=== PATIENT | male | born 1945 | race African-American/Black ===

== ENCOUNTER 2019-03-27 08:38 | Inpatient (IN) ==
[2019-03-27] MEDS ORDERED: HYDROmorphone 2 MG/1 ML VIAL IV STA (09:21)
[2019-03-27] MEDS ORDERED: SODIUM CHLORIDE 0.9% 1,000 ML IV STA (09:21)
[2019-03-27] MEDS ORDERED: ONDANSETRON 4 MG/2 ML VIAL IV STA (09:21)
[2019-03-27 10:01] LABS: Basophils % 0.5 % (0.0-0.8); Eosinophils # 0.1 10*3/uL (0.0-0.87); Eosinophils % 1.3 % (0.00-10.9); Hematocrit 53.9 VOL% (42.0-52.0); Immature Granulocytes % 0.5 %; Immature Granulocytes Absolute 0.02 #; Lymphocytes # 0.5 10*3/uL (1.4-4.0); Lymphocytes % 12.2 % (21.2-54.2); Mean Corpuscular HGB Conc 31.5 GM/DL (32-36); Mean Platelet Volume 10.9 FL (9.6-12.0); Monocytes % 4.3 % (1.7-12.7); Neutrophils % 81.2 % (38.7-73.9); Platelet Count 170 T/CUMM (130-400); Red Blood Count 5.92 MC/CUMM (3.8-5.5); Red Cell Distribution Width 13.3 % (9.3-17.3)
[2019-03-27 10:16] LABS: PT Patient Result 10.4 SECS (9.6-12.2); Partial Thromboplastin Time 26.2 SECS (20.8-36.0)
[2019-03-27 10:22] LABS: Alanine Aminotransferase 15 U/L (16-61); Albumin 3.2 G/DL (3.4-5.0); Alkaline Phosphatase 91 U/L (45-117); Aspartate Amino Transferase 20 U/L (0-37); Blood Urea Nitrogen 13 MG/DL (7-18); Calcium 9.7 MG/DL (8.5-10.1); Estimated Glom Filtration Rate 81 ML/MIN; Glucose 57 MG/DL (74-106); Osmolality,Calculated 274.5 MOS/KG (273-304); Total Protein 7.9 G/DL (6.4-8.3)
[2019-03-27 10:52] LABS: Apearance,Urine CLEAR (Clear); Bacteria,Urine Occasional /HPF (Few); Bilirubin,Urine Negative (Negative); Blood, Urine Negative (Negative); Glucose,Urine (UA) Negative (Negative); Ketones,Urine 80 mg/dL (Negative); Mucus,Urine Occasional /LPF (Occasional); Nitrite,Urine Negative (Negative); Protein,Urine Negative; RBC,Urine 2 /HPF (0-4); Squamous Epithelial Cell,Urine Few /HPF (0-10); Urine Color Yellow (Yellow); Urine Specific Gravity 1.056 (1.001-1.035); Urine Urobilinogen < 2.0 EU/DL (0.2-1.0)
[2019-03-27] MEDS ORDERED: hydrALAZINE 20 MG/1 ML VIAL IV PRN (11:22)
[2019-03-27] MEDS ORDERED: ACETAMINOPHEN 325 MG TABLET PO PRN (11:22)
[2019-03-27] MEDS ORDERED: ENOXAPARIN 40 MG/0.4 ML SYRINGE SUBCUT SCH (11:30)
[2019-03-27] MEDS ORDERED: SODIUM CHLORIDE 0.45% 1,000 ML IV SCH (11:30)
[2019-03-27 12:56] LABS: Cancer Antigen 19-9 687.8 U/ML (0-37); Carcinoembryonic Antigen 2.4 NG/ML (0.0-5.0)
[2019-03-27 13:09] LABS: Hepatitis B Surface Ag Quant < 0.10 Index; Hepatitis B Surface Ag Result Negative (Negative); Hepatitis C Virus Ab Quant 0.08 Index; Hepatitis C Virus Ab Result Negative (Negative)
[2019-03-27] MEDS: DEXTROSE 5% NACL 0.45% 1,000 ML IV SCH (14:25)
[2019-03-27] MEDS: carvediloL 12.5 MG TABLET PO SCH (20:50)
[2019-03-28 04:59] LABS: Basophils % 0.2 % (0.0-0.8); Eosinophils # 0.1 10*3/uL (0.0-0.87); Eosinophils % 1.3 % (0.00-10.9); Hematocrit 35.5 VOL% (42.0-52.0); Hemoglobin 11.2 GM/DL (14.0-18.0); Immature Granulocytes % 0.4 %; Immature Granulocytes Absolute 0.02 #; Lymphocytes # 0.7 10*3/uL (1.4-4.0); Mean Corpuscular HGB Conc 31.5 GM/DL (32-36); Mean Corpuscular Volume 91.5 FL (87-102); Mean Platelet Volume 12.5 FL (9.6-12.0); Monocytes % 7.5 % (1.7-12.7); Neutrophils % 78.6 % (38.7-73.9); Platelet Count 100 T/CUMM (130-400); Red Blood Count 3.88 MC/CUMM (3.8-5.5); Red Cell Distribution Width 13.4 % (9.3-17.3); White Blood Count 5.6 T/CUMM (4-12)
[2019-03-28 05:26] LABS: Albumin 2.2 G/DL (3.4-5.0); Calcium 8.5 MG/DL (8.5-10.1); Osmolality,Calculated 273.7 MOS/KG (273-304); Total Protein 5.5 G/DL (6.4-8.3)
[2019-03-28] MEDS: DEXTROSE 5% NACL 0.45% 1,000 ML IV SCH ×2 (08:05→20:59)
[2019-03-28] MEDS: carvediloL 12.5 MG TABLET PO SCH ×2 (09:08→20:59)
[2019-03-28] MEDS: LOSARTAN 50 MG TABLET PO SCH (09:08)
[2019-03-28] MEDS: amLODIPine 5 MG TABLET PO SCH (09:08)
[2019-03-28] MEDS ORDERED: DIAZEPAM 5 MG TABLET PO ONE (09:30)
[2019-03-28] MEDS: PANTOPRAZOLE 40 MG TABLET PO SCH (10:59)
[2019-03-28] MEDS: POTASSIUM CHLORIDE 20 MEQ TABLET PO SCH (10:59)
[2019-03-28] MEDS: LACTULOSE 20 GM/30 ML UDCUP PO PRN (10:59)
[2019-03-28] MEDS: MORPHINE 4 MG/1 ML VIAL IV PRN (13:33)
[2019-03-28] MEDS: APIXABAN 5 MG TABLET PO SCH (20:59)
[2019-03-29 05:54] LABS: Basophils % 0.3 % (0.0-0.8); Eosinophils # 0.1 10*3/uL (0.0-0.87); Eosinophils % 1.2 % (0.00-10.9); Hematocrit 35.3 VOL% (42.0-52.0); Hemoglobin 11.2 GM/DL (14.0-18.0); Immature Granulocytes % 0.5 %; Immature Granulocytes Absolute 0.03 #; Lymphocytes # 0.7 10*3/uL (1.4-4.0); Lymphocytes % 11.1 % (21.2-54.2); Mean Corpuscular HGB Conc 31.7 GM/DL (32-36); Mean Corpuscular Volume 90.3 FL (87-102); Mean Platelet Volume 11.6 FL (9.6-12.0); Monocytes % 6.6 % (1.7-12.7); Neutrophils % 80.3 % (38.7-73.9); Platelet Count 188 T/CUMM (130-400); Red Blood Count 3.91 MC/CUMM (3.8-5.5); Red Cell Distribution Width 13.2 % (9.3-17.3); White Blood Count 6.1 T/CUMM (4-12)
[2019-03-29 06:25] LABS: Albumin 2.2 G/DL (3.4-5.0); Bilirubin,Total 1.3 MG/DL (0.2-1.0); Osmolality,Calculated 271.8 MOS/KG (273-304); Total Protein 5.7 G/DL (6.4-8.3)
[2019-03-29] MEDS ORDERED: SODIUM PHOSPHATE ENEMA 133 ML BOTTLE RECTAL ONE (09:08)
[2019-03-29] MEDS: POTASSIUM CHLORIDE 20 MEQ TABLET PO SCH (09:47)
[2019-03-29] MEDS: carvediloL 12.5 MG TABLET PO SCH ×2 (09:47→20:31)
[2019-03-29] MEDS: LACTULOSE 20 GM/30 ML UDCUP PO PRN (09:47)
[2019-03-29] MEDS: amLODIPine 5 MG TABLET PO SCH (09:47)
[2019-03-29] MEDS: PANTOPRAZOLE 40 MG TABLET PO SCH (09:47)
[2019-03-29] MEDS: LOSARTAN 50 MG TABLET PO SCH (09:47)
[2019-03-29] MEDS: DEXTROSE 5% NACL 0.45% 1,000 ML IV SCH (09:48)
[2019-03-29] MEDS: APIXABAN 5 MG TABLET PO SCH ×2 (10:18→20:32)
[2019-03-29] MEDS: MORPHINE 4 MG/1 ML VIAL IV PRN (12:08)
[2019-03-29] MEDS: POLYETHYLENE GLYCOL POWDER 17 GM PACK PO SCH (21:10)
[2019-03-30] MEDS: DEXTROSE 5% NACL 0.45% 1,000 ML IV SCH (02:30)
[2019-03-30] MEDS: MORPHINE 4 MG/1 ML VIAL IV PRN ×2 (02:35→10:31)
[2019-03-30 06:09] LABS: Basophils % 0.2 % (0.0-0.8); Eosinophils # 0.1 10*3/uL (0.0-0.87); Eosinophils % 0.9 % (0.00-10.9); Hematocrit 35.3 VOL% (42.0-52.0); Hemoglobin 11.5 GM/DL (14.0-18.0); Immature Granulocytes % 0.5 %; Immature Granulocytes Absolute 0.03 #; Lymphocytes # 0.7 10*3/uL (1.4-4.0); Lymphocytes % 11.4 % (21.2-54.2); Mean Corpuscular HGB Conc 32.6 GM/DL (32-36); Mean Corpuscular Volume 90.1 FL (87-102); Mean Platelet Volume 11.4 FL (9.6-12.0); Monocytes % 7.5 % (1.7-12.7); Neutrophils % 79.5 % (38.7-73.9); Platelet Count 192 T/CUMM (130-400); Red Blood Count 3.92 MC/CUMM (3.8-5.5); Red Cell Distribution Width 13.2 % (9.3-17.3); White Blood Count 6.4 T/CUMM (4-12)
[2019-03-30 06:32] LABS: Alanine Aminotransferase < 9 U/L (16-61); Albumin 2.1 G/DL (3.4-5.0); Alkaline Phosphatase 61 U/L (45-117); Aspartate Amino Transferase 11 U/L (0-37); Blood Urea Nitrogen 7 MG/DL (7-18); Calcium 8.9 MG/DL (8.5-10.1); Estimated Glom Filtration Rate 81 ML/MIN; Glucose 106 MG/DL (74-106); Osmolality,Calculated 270.8 MOS/KG (273-304); Total Protein 5.6 G/DL (6.4-8.3)
[2019-03-30] MEDS: POLYETHYLENE GLYCOL POWDER 17 GM PACK PO SCH (09:11)
[2019-03-30] MEDS: carvediloL 12.5 MG TABLET PO SCH (09:12)
[2019-03-30] MEDS: PANTOPRAZOLE 40 MG TABLET PO SCH (09:12)
[2019-03-30] MEDS: POTASSIUM CHLORIDE 20 MEQ TABLET PO SCH (09:12)
[2019-03-30] MEDS: amLODIPine 5 MG TABLET PO SCH (09:12)
[2019-03-30] MEDS: LOSARTAN 50 MG TABLET PO SCH (09:12)
[2019-03-30 11:11] VITALS: BP 99/62
== END 2019-03-30 14:05 | disposition home or self-care (01) | DRG 436 ==
LOC: N.ED 08:38 → N.EDINP 11:22 → SUATTDRO 11:22 → OBSVTOIN 11:22 → INTOOBSV 11:22 → N.3E 12:25
PROVIDERS: ADMIT Internal Medicine; ATTEND Internal Medicine

== ENCOUNTER 2019-03-31 11:36 | Inpatient (IN) ==
[2019-03-31] MEDS ORDERED: SODIUM CHLORIDE 0.9% 1,000 ML IV STA (11:58)
[2019-03-31] MEDS ORDERED: ONDANSETRON 4 MG/2 ML VIAL IV STA (11:58)
[2019-03-31] MEDS ORDERED: HYDROmorphone 2 MG/1 ML VIAL IV STA (11:58)
[2019-03-31 12:04] LABS: Basophils % 0.3 % (0.0-0.8); Eosinophils # 0.1 10*3/uL (0.0-0.87); Eosinophils % 1.3 % (0.00-10.9); Hematocrit 38.3 VOL% (42.0-52.0); Hemoglobin 12.5 GM/DL (14.0-18.0); Immature Granulocytes % 0.6 %; Immature Granulocytes Absolute 0.04 #; Lymphocytes # 0.8 10*3/uL (1.4-4.0); Lymphocytes % 11.8 % (21.2-54.2); Mean Corpuscular HGB Conc 32.6 GM/DL (32-36); Mean Corpuscular Volume 89.9 FL (87-102); Mean Platelet Volume 11.6 FL (9.6-12.0); Monocytes % 6.7 % (1.7-12.7); Neutrophils % 79.3 % (38.7-73.9); Platelet Count 220 T/CUMM (130-400); Red Blood Count 4.26 MC/CUMM (3.8-5.5); Red Cell Distribution Width 13.3 % (9.3-17.3); White Blood Count 6.7 T/CUMM (4-12)
[2019-03-31 12:24] LABS: Albumin 2.3 G/DL (3.4-5.0); Bilirubin,Total 0.7 MG/DL (0.2-1.0); Calcium 9.6 MG/DL (8.5-10.1); Osmolality,Calculated 272.8 MOS/KG (273-304); Total Protein 5.8 G/DL (6.4-8.3)
[2019-03-31 13:30] LABS: Apearance,Urine CLEAR (Clear); Bacteria,Urine Occasional /HPF (Few); Bilirubin,Urine Negative (Negative); Blood, Urine Negative (Negative); Glucose,Urine (UA) Negative (Negative); Hyaline Casts,Urine 20 /LPF (0-3); Ketones,Urine 5 mg/dL (Negative); Mucus,Urine Moderate /LPF (Occasional); Nitrite,Urine Negative (Negative); Protein,Urine Negative; Sperm,Urine Occasional /HPF (Negative); Urine Color Amber (Yellow); Urine Specific Gravity 1.042 (1.001-1.035); Urine Urobilinogen < 2.0 EU/DL (0.2-1.0)
[2019-03-31] MEDS ORDERED: BISACODYL 10 MG SUPP RECTAL STA (14:12)
[2019-03-31] MEDS ORDERED: ZALEPLON 5 MG CAPSULE PO PRN (16:38)
[2019-03-31] MEDS ORDERED: PROMETHAZINE 25 MG/1 ML VIAL IM PRN (16:38)
[2019-03-31] MEDS ORDERED: DOCUSATE SODIUM 100 MG CAPSULE PO PRN (16:38)
[2019-03-31] MEDS ORDERED: NICOTINE 21 MG/24 HR PATCH TRANSDERM PRN (16:38)
[2019-03-31] MEDS ORDERED: ONDANSETRON 4 MG/2 ML VIAL IV PRN (16:38)
[2019-03-31] MEDS ORDERED: guaiFENesin/DM ER 600-30 MG TABLET PO PRN (16:38)
[2019-03-31] MEDS ORDERED: hydrALAZINE 20 MG/1 ML VIAL IV PRN (16:38)
[2019-03-31] MEDS: PANTOPRAZOLE 40 MG VIAL IV SCH (18:21)
[2019-03-31] MEDS: DEXT 5% NACL 0.9% KCL 20 MEQ 20 MEQ/1,000 ML BAG IV SCH (18:25)
[2019-03-31] MEDS: ALBUTEROL 2.5 MG/3 ML NEB RESP TX SCH (19:55)
[2019-03-31] MEDS: carvediloL 12.5 MG TABLET PO SCH (21:41)
[2019-04-01] MEDS: MORPHINE 4 MG/1 ML VIAL IV PRN ×2 (00:08→16:58)
[2019-04-01] MEDS: ALBUTEROL 2.5 MG/3 ML NEB RESP TX SCH ×4 (00:10→19:12)
[2019-04-01 05:36] LABS: PT Patient Result 10.8 SECS (9.6-12.2); Partial Thromboplastin Time 31.8 SECS (20.8-36.0)
[2019-04-01 05:45] LABS: Basophils % 0.3 % (0.0-0.8); Eosinophils % 0.6 % (0.00-10.9); Hematocrit 36.6 VOL% (42.0-52.0); Hemoglobin 11.1 GM/DL (14.0-18.0); Immature Granulocytes % 0.3 %; Immature Granulocytes Absolute 0.02 #; Lymphocytes # 0.8 10*3/uL (1.4-4.0); Lymphocytes % 12.9 % (21.2-54.2); Mean Corpuscular HGB Conc 30.3 GM/DL (32-36); Mean Corpuscular Volume 94.1 FL (87-102); Mean Platelet Volume 11.5 FL (9.6-12.0); Monocytes % 7.3 % (1.7-12.7); Neutrophils % 78.6 % (38.7-73.9); Platelet Count 241 T/CUMM (130-400); Red Blood Count 3.89 MC/CUMM (3.8-5.5); Red Cell Distribution Width 13.6 % (9.3-17.3); White Blood Count 6.4 T/CUMM (4-12)
[2019-04-01 05:53] LABS: Albumin 2.1 G/DL (3.4-5.0); Bilirubin,Total 0.9 MG/DL (0.2-1.0); Calcium 9.2 MG/DL (8.5-10.1); Osmolality,Calculated 280.4 MOS/KG (273-304); Total Protein 5.4 G/DL (6.4-8.3)
[2019-04-01] MEDS: PANTOPRAZOLE 40 MG VIAL IV SCH (09:24)
[2019-04-01] MEDS: amLODIPine 5 MG TABLET PO SCH (09:25)
[2019-04-01] MEDS: ATORVASTATIN 20 MG TABLET PO SCH (09:25)
[2019-04-01] MEDS: carvediloL 12.5 MG TABLET PO SCH ×2 (09:25→22:10)
[2019-04-01] MEDS: DEXT 5% NACL 0.9% KCL 20 MEQ 20 MEQ/1,000 ML BAG IV SCH ×2 (09:25→22:11)
[2019-04-01] MEDS: BISACODYL 5 MG TABLET PO SCH (17:31)
[2019-04-01] MEDS ORDERED: POLYETHYLENE GLYCOL POWDER 255 GM BOTTLE PO ONE (18:00)
[2019-04-01] MEDS ORDERED: MAGNESIUM CITRATE 300 ML BOTTLE PO ONE (21:00)
[2019-04-02] MEDS: ALBUTEROL 2.5 MG/3 ML NEB RESP TX SCH ×4 (00:37→19:20)
[2019-04-02] MEDS: BISACODYL 5 MG TABLET PO SCH ×2 (03:12→10:24)
[2019-04-02 05:04] LABS: Basophils % 0.2 % (0.0-0.8); Eosinophils # 0.1 10*3/uL (0.0-0.87); Eosinophils % 1.4 % (0.00-10.9); Hematocrit 34.5 VOL% (42.0-52.0); Hemoglobin 10.5 GM/DL (14.0-18.0); Immature Granulocytes % 0.3 %; Immature Granulocytes Absolute 0.02 #; Lymphocytes # 0.6 10*3/uL (1.4-4.0); Lymphocytes % 9.9 % (21.2-54.2); Mean Corpuscular HGB Conc 30.4 GM/DL (32-36); Mean Corpuscular Volume 93.5 FL (87-102); Mean Platelet Volume 10.9 FL (9.6-12.0); Monocytes % 7.3 % (1.7-12.7); Neutrophils % 80.9 % (38.7-73.9); Platelet Count 202 T/CUMM (130-400); Red Blood Count 3.69 MC/CUMM (3.8-5.5); Red Cell Distribution Width 13.5 % (9.3-17.3); White Blood Count 6.5 T/CUMM (4-12)
[2019-04-02 05:18] LABS: Calcium 9.2 MG/DL (8.5-10.1); Osmolality,Calculated 285.3 MOS/KG (273-304)
[2019-04-02] MEDS ORDERED: LACTATED RINGERS 1,000 ML IV SCH (07:00)
[2019-04-02] MEDS: PANTOPRAZOLE 40 MG VIAL IV SCH (10:31)
[2019-04-02] MEDS: DEXT 5% NACL 0.9% KCL 20 MEQ 20 MEQ/1,000 ML BAG IV SCH (10:32)
[2019-04-02] MEDS: carvediloL 12.5 MG TABLET PO SCH ×2 (10:32→21:45)
[2019-04-02] MEDS: amLODIPine 5 MG TABLET PO SCH (10:32)
[2019-04-02] MEDS: ATORVASTATIN 20 MG TABLET PO SCH (10:32)
[2019-04-02] MEDS ORDERED: ETOMIDATE 20 MG/10 ML VIAL IV ONE (12:00)
[2019-04-02] MEDS ORDERED: LIDOCAINE 2% 5 ML VIAL ONE (12:00)
[2019-04-02] MEDS ORDERED: propofoL 200 MG/20 ML VIAL IV ONE (12:00)
[2019-04-02] MEDS ORDERED: PHENYLEPH/MINERAL OIL/PETROLAT 57 GM TUBE TOP PRN (14:36)
[2019-04-02] MEDS ORDERED: HYDROCORTISONE 2.5% RECTAL CREAM 30 GM TUBE TOP PRN (15:51)
[2019-04-02] MEDS: POLYETHYLENE GLYCOL POWDER 17 GM PACK PO SCH (22:28)
[2019-04-02] MEDS: MORPHINE 4 MG/1 ML VIAL IV PRN (23:33)
[2019-04-03] MEDS: DEXT 5% NACL 0.9% KCL 20 MEQ 20 MEQ/1,000 ML BAG IV SCH ×3 (00:15→19:55)
[2019-04-03] MEDS: ALBUTEROL 2.5 MG/3 ML NEB RESP TX SCH ×4 (00:28→19:36)
[2019-04-03 05:57] LABS: Basophils % 0.2 % (0.0-0.8); Eosinophils # 0.1 10*3/uL (0.0-0.87); Eosinophils % 1.6 % (0.00-10.9); Hematocrit 32.2 VOL% (42.0-52.0); Immature Granulocytes % 0.5 %; Immature Granulocytes Absolute 0.03 #; Lymphocytes # 0.7 10*3/uL (1.4-4.0); Lymphocytes % 11.3 % (21.2-54.2); Mean Corpuscular HGB Conc 31.1 GM/DL (32-36); Mean Corpuscular Volume 93.3 FL (87-102); Mean Platelet Volume 10.6 FL (9.6-12.0); Monocytes % 7.3 % (1.7-12.7); Neutrophils % 79.1 % (38.7-73.9); Platelet Count 184 T/CUMM (130-400); Red Blood Count 3.45 MC/CUMM (3.8-5.5); Red Cell Distribution Width 13.6 % (9.3-17.3); White Blood Count 5.8 T/CUMM (4-12)
[2019-04-03] MEDS: PANTOPRAZOLE 40 MG VIAL IV SCH (09:37)
[2019-04-03] MEDS: MORPHINE 4 MG/1 ML VIAL IV PRN ×2 (09:38→19:53)
[2019-04-03] MEDS: carvediloL 12.5 MG TABLET PO SCH ×2 (09:51→20:08)
[2019-04-03] MEDS: POLYETHYLENE GLYCOL POWDER 17 GM PACK PO SCH ×2 (09:51→19:55)
[2019-04-03] MEDS: amLODIPine 5 MG TABLET PO SCH (09:51)
[2019-04-03] MEDS: ATORVASTATIN 20 MG TABLET PO SCH (09:51)
[2019-04-03] MEDS ORDERED: ceFAZolin 1,000 MG in SYRINGE 1 EACH IV ONE (10:00)
[2019-04-03] MEDS ORDERED: MYLANTA/LIDO VISC 2:1 300 ML BOTTLE SWISH/SWAL PRN (14:56)
[2019-04-03] MEDS ORDERED: chlorproMAZINE 25 MG TABLET PO PRN (14:56)
[2019-04-03] MEDS ORDERED: LACTULOSE 20 GM/30 ML UDCUP PO PRN (14:56)
[2019-04-03] MEDS ORDERED: ACETAMINOPHEN 325 MG TABLET PO PRN (14:56)
[2019-04-03] MEDS ORDERED: MAGNESIUM HYDROXIDE SUSP 30 ML UDCUP PO PRN (14:56)
[2019-04-03] MEDS ORDERED: ALUMINUM/MAGNES/SIMETH MAX STR 30 ML UDCUP PO PRN (14:56)
[2019-04-03] MEDS ORDERED: chlorproMAZINE INJ 25 MG in SODIUM CHLORIDE 0.9% 100 ML IV PRN (14:56)
[2019-04-03] MEDS ORDERED: MYLANTA/LIDO VISC 2:1 300 ML BOTTLE SWISH/SPIT PRN (14:56)
[2019-04-03] MEDS ORDERED: PROMETHAZINE INJ 25 MG in SODIUM CHLORIDE 0.9% 50 ML IV PRN (14:56)
[2019-04-03] MEDS ORDERED: guaiFENesin 200 MG/10 ML UDCUP PO PRN (14:56)
[2019-04-03] MEDS ORDERED: chlorproMAZINE INJ 50 MG in SODIUM CHLORIDE 0.9% 100 ML IV PRN (14:56)
[2019-04-03] MEDS ORDERED: ONDANSETRON 4 MG/2 ML VIAL IV PRN (14:56)
[2019-04-03] MEDS ORDERED: LOPERAMIDE 2 MG CAPSULE PO PRN ×2 (14:56)
[2019-04-03] MEDS ORDERED: BENZTROPINE 2 MG/2 ML AMP IV PRN (14:56)
[2019-04-03] MEDS: ALPRAZolam 0.25 MG TABLET PO PRN (15:23)
[2019-04-04] MEDS: ALBUTEROL 2.5 MG/3 ML NEB RESP TX SCH ×4 (00:21→18:52)
[2019-04-04] MEDS: MORPHINE 4 MG/1 ML VIAL IV PRN ×3 (01:12→20:51)
[2019-04-04 05:21] LABS: Basophils % 0.2 % (0.0-0.8); Eosinophils # 0.1 10*3/uL (0.0-0.87); Eosinophils % 1.2 % (0.00-10.9); Hematocrit 34.8 VOL% (42.0-52.0); Hemoglobin 10.8 GM/DL (14.0-18.0); Immature Granulocytes % 0.7 %; Immature Granulocytes Absolute 0.04 #; Lymphocytes # 0.7 10*3/uL (1.4-4.0); Lymphocytes % 11.1 % (21.2-54.2); Mean Corpuscular Volume 92.6 FL (87-102); Mean Platelet Volume 11.4 FL (9.6-12.0); Monocytes % 7.4 % (1.7-12.7); Neutrophils % 79.4 % (38.7-73.9); Platelet Count 178 T/CUMM (130-400); Red Blood Count 3.76 MC/CUMM (3.8-5.5); Red Cell Distribution Width 13.6 % (9.3-17.3)
[2019-04-04] MEDS ORDERED: ceFAZolin 1,000 MG in SYRINGE 1 EACH IV ONE (06:00)
[2019-04-04] MEDS ORDERED: SODIUM POLYSTYRENE SULFATE 15 GM/60 ML BOTTLE PO STA (08:19)
[2019-04-04] MEDS: amLODIPine 5 MG TABLET PO SCH (15:08)
[2019-04-04] MEDS: ATORVASTATIN 20 MG TABLET PO SCH (15:08)
[2019-04-04] MEDS: PANTOPRAZOLE 40 MG VIAL IV SCH (15:09)
[2019-04-04] MEDS: POLYETHYLENE GLYCOL POWDER 17 GM PACK PO SCH ×2 (15:09→20:50)
[2019-04-04] MEDS: carvediloL 12.5 MG TABLET PO SCH ×2 (15:09→20:50)
[2019-04-05] MEDS: ALBUTEROL 2.5 MG/3 ML NEB RESP TX SCH ×4 (00:39→19:37)
[2019-04-05 07:16] LABS: Basophils % 0.3 % (0.0-0.8); Eosinophils % 0.4 % (0.00-10.9); Hematocrit 38.9 VOL% (42.0-52.0); Hemoglobin 11.8 GM/DL (14.0-18.0); Immature Granulocytes % 0.7 %; Immature Granulocytes Absolute 0.05 #; Lymphocytes # 0.8 10*3/uL (1.4-4.0); Lymphocytes % 10.5 % (21.2-54.2); Mean Corpuscular HGB Conc 30.3 GM/DL (32-36); Mean Platelet Volume 11.6 FL (9.6-12.0); Neutrophils % 82.1 % (38.7-73.9); Platelet Count 207 T/CUMM (130-400); Red Blood Count 4.14 MC/CUMM (3.8-5.5); Red Cell Distribution Width 13.6 % (9.3-17.3); White Blood Count 7.7 T/CUMM (4-12)
[2019-04-05 07:29] LABS: Calcium 9.7 MG/DL (8.5-10.1); Osmolality,Calculated 279.4 MOS/KG (273-304)
[2019-04-05] MEDS ORDERED: SODIUM POLYSTYRENE SULFATE 15 GM/60 ML BOTTLE PO ONE (07:38)
[2019-04-05] MEDS: PANTOPRAZOLE 40 MG VIAL IV SCH (08:16)
[2019-04-05] MEDS: MORPHINE 4 MG/1 ML VIAL IV PRN ×3 (08:17→21:41)
[2019-04-05] MEDS: POLYETHYLENE GLYCOL POWDER 17 GM PACK PO SCH ×2 (09:33→23:43)
[2019-04-05] MEDS: ATORVASTATIN 20 MG TABLET PO SCH (09:34)
[2019-04-05] MEDS: amLODIPine 5 MG TABLET PO SCH (09:34)
[2019-04-05] MEDS: carvediloL 12.5 MG TABLET PO SCH ×2 (09:34→21:41)
[2019-04-06] MEDS: MORPHINE 4 MG/1 ML VIAL IV PRN ×3 (00:55→10:24)
[2019-04-06] MEDS: ALBUTEROL 2.5 MG/3 ML NEB RESP TX SCH ×4 (01:20→19:42)
[2019-04-06 04:34] LABS: Basophils % 0.3 % (0.0-0.8); Eosinophils % 0.4 % (0.00-10.9); Hematocrit 35.2 VOL% (42.0-52.0); Hemoglobin 11.1 GM/DL (14.0-18.0); Immature Granulocytes % 0.8 %; Immature Granulocytes Absolute 0.06 #; Lymphocytes # 0.7 10*3/uL (1.4-4.0); Lymphocytes % 9.4 % (21.2-54.2); Mean Corpuscular HGB Conc 31.5 GM/DL (32-36); Mean Corpuscular Volume 90.7 FL (87-102); Mean Platelet Volume 11.2 FL (9.6-12.0); Monocytes % 6.5 % (1.7-12.7); Neutrophils % 82.6 % (38.7-73.9); Platelet Count 187 T/CUMM (130-400); Red Blood Count 3.88 MC/CUMM (3.8-5.5); Red Cell Distribution Width 13.8 % (9.3-17.3); White Blood Count 7.9 T/CUMM (4-12)
[2019-04-06 04:57] LABS: Calcium 9.5 MG/DL (8.5-10.1); Osmolality,Calculated 290.8 MOS/KG (273-304)
[2019-04-06] MEDS: DEXT 5% NACL 0.9% KCL 20 MEQ 20 MEQ/1,000 ML BAG IV SCH ×3 (07:20→10:30)
[2019-04-06] MEDS: amLODIPine 5 MG TABLET PO SCH (10:29)
[2019-04-06] MEDS: ATORVASTATIN 20 MG TABLET PO SCH (10:29)
[2019-04-06] MEDS: carvediloL 12.5 MG TABLET PO SCH ×2 (10:29→20:25)
[2019-04-06] MEDS: POLYETHYLENE GLYCOL POWDER 17 GM PACK PO SCH ×2 (10:29→22:26)
[2019-04-06] MEDS: PANTOPRAZOLE 40 MG VIAL IV SCH (10:29)
[2019-04-06] MEDS: TEMAZEPAM 7.5 MG CAPSULE PO PRN (20:25)
[2019-04-06] MEDS: ALPRAZolam 0.25 MG TABLET PO PRN (20:25)
[2019-04-07] MEDS: ALBUTEROL 2.5 MG/3 ML NEB RESP TX SCH ×4 (00:30→19:46)
[2019-04-07] MEDS: MORPHINE 4 MG/1 ML VIAL IV PRN (03:00)
[2019-04-07] MEDS: ALPRAZolam 0.25 MG TABLET PO PRN ×4 (04:13→20:13)
[2019-04-07] MEDS: carvediloL 12.5 MG TABLET PO SCH ×2 (09:19→20:12)
[2019-04-07] MEDS: amLODIPine 5 MG TABLET PO SCH (09:19)
[2019-04-07] MEDS: PANTOPRAZOLE 40 MG VIAL IV SCH (09:44)
[2019-04-07] MEDS: POLYETHYLENE GLYCOL POWDER 17 GM PACK PO SCH ×2 (09:44→21:16)
[2019-04-07] MEDS: ATORVASTATIN 20 MG TABLET PO SCH (09:44)
[2019-04-07] MEDS: DEXT 5% NACL 0.9% KCL 20 MEQ 20 MEQ/1,000 ML BAG IV SCH ×3 (09:44→13:29)
[2019-04-07] MEDS: diphenhydrAMINE CAP 25 MG CAPSULE PO PRN (20:12)
[2019-04-07] MEDS: TEMAZEPAM 7.5 MG CAPSULE PO PRN (20:13)
[2019-04-08] MEDS: ALBUTEROL 2.5 MG/3 ML NEB RESP TX SCH ×4 (01:02→19:56)
[2019-04-08] MEDS: diphenhydrAMINE CAP 25 MG CAPSULE PO PRN (02:49)
[2019-04-08] MEDS: ALPRAZolam 0.25 MG TABLET PO PRN (02:49)
[2019-04-08 03:48] LABS: ABG Base Excess -3.9 MMOL/L (-2.5-2.5); ABG HCO3 21.1 MMOL/L (20-26); ABG Oxygen Saturation 95.6 % (95-100); ABG PCO2 31.3 MM HG (35-48); ABG PH 7.411 (7.35-7.45); ABG PO2 83.3 MM HG (80-95); ABG TCO2 17.8 MMOL/L (23-27)
[2019-04-08 06:10] LABS: ABG Base Excess -4.4 MMOL/L (-2.5-2.5); ABG HCO3 19.3 MMOL/L (20-26); ABG Oxygen Saturation 96.9 % (95-100); ABG PCO2 30.9 MM HG (35-48); ABG PH 7.413 (7.35-7.45); ABG PO2 99.4 MM HG (80-95); ABG TCO2 20.2 MMOL/L (23-27)
[2019-04-08] MEDS: DEXT 5% NACL 0.9% KCL 20 MEQ 20 MEQ/1,000 ML BAG IV SCH (07:00)
[2019-04-08] MEDS: ATORVASTATIN 20 MG TABLET PO SCH (10:51)
[2019-04-08] MEDS: amLODIPine 5 MG TABLET PO SCH (10:51)
[2019-04-08] MEDS: carvediloL 12.5 MG TABLET PO SCH ×3 (10:51→20:08)
[2019-04-08] MEDS: POLYETHYLENE GLYCOL POWDER 17 GM PACK PO SCH ×2 (10:51→20:08)
[2019-04-08 10:52] LABS: Apearance,Urine CLEAR (Clear); Bacteria,Urine Occasional /HPF (Few); Bilirubin,Urine Negative (Negative); Blood, Urine Small mg/dL (Negative); Glucose,Urine (UA) Negative (Negative); Hyaline Casts,Urine 20 /LPF (0-3); Ketones,Urine Negative (Negative); Mucus,Urine Occasional /LPF (Occasional); Nitrite,Urine Negative (Negative); Protein,Urine Negative; RBC,Urine 3 /HPF (0-4); Squamous Epithelial Cell,Urine Occasional /HPF (0-10); Urine Color Amber (Yellow); Urine Specific Gravity 1.024 (1.001-1.035); Urine Urobilinogen < 2.0 EU/DL (0.2-1.0); WBC,Urine 2 /HPF (0-6)
[2019-04-08] MEDS: DEXTROSE 5% NACL 0.9% 1,000 ML IV SCH (11:10)
[2019-04-08] MEDS: PANTOPRAZOLE 40 MG VIAL IV SCH (11:10)
[2019-04-08] MEDS: traMADol 50 MG TABLET PO PRN ×2 (14:23→20:08)
[2019-04-08 15:28] LABS: Basophils % 0.2 % (0.0-0.8); Eosinophils # 0.1 10*3/uL (0.0-0.87); Eosinophils % 0.8 % (0.00-10.9); Hematocrit 38.7 VOL% (42.0-52.0); Immature Granulocytes % 0.6 %; Immature Granulocytes Absolute 0.04 #; Lymphocytes # 0.5 10*3/uL (1.4-4.0); Lymphocytes % 7.6 % (21.2-54.2); Mean Corpuscular HGB Conc 30.5 GM/DL (32-36); Mean Corpuscular Volume 95.1 FL (87-102); Mean Platelet Volume 11.7 FL (9.6-12.0); Monocytes % 3.9 % (1.7-12.7); Neutrophils % 86.9 % (38.7-73.9); Platelet Count 156 T/CUMM (130-400); Red Blood Count 4.07 MC/CUMM (3.8-5.5); Red Cell Distribution Width 13.8 % (9.3-17.3); White Blood Count 6.6 T/CUMM (4-12)
[2019-04-08 15:29] LABS: Hemoglobin 11.8 GM/DL (14.0-18.0)
[2019-04-08 15:31] LABS: Osmolality,Calculated 293.3 MOS/KG (273-304)
[2019-04-08] MEDS: TEMAZEPAM 7.5 MG CAPSULE PO PRN (20:08)
[2019-04-09] MEDS: DEXTROSE 5% NACL 0.9% 1,000 ML IV SCH (01:32)
[2019-04-09] MEDS: ALBUTEROL 2.5 MG/3 ML NEB RESP TX SCH ×4 (01:44→19:32)
[2019-04-09] MEDS: carvediloL 12.5 MG TABLET PO SCH (10:50)
[2019-04-09] MEDS: ATORVASTATIN 20 MG TABLET PO SCH (10:50)
[2019-04-09] MEDS: POLYETHYLENE GLYCOL POWDER 17 GM PACK PO SCH (10:51)
[2019-04-09] MEDS: PANTOPRAZOLE 40 MG VIAL IV SCH (10:51)
[2019-04-09] MEDS: amLODIPine 5 MG TABLET PO SCH (10:51)
[2019-04-09] MEDS ORDERED: MORPHINE 4 MG/1 ML VIAL IV PRN (18:43)
[2019-04-10] MEDS: ALBUTEROL 2.5 MG/3 ML NEB RESP TX SCH ×2 (00:50→07:13)
[2019-04-10 05:02] VITALS: BP 102/65
== END 2019-04-10 08:03 | disposition hospice, inpatient (51) | DRG 374 ==
LOC: N.ED 11:36 → SUATTDRO 16:38 → N.EDINP 16:38 → N.4E 17:14 → N.CC 04-08 03:29 → N.4E 04-09 15:29
PROVIDERS: ADMIT Internal Medicine; ATTEND Internal Medicine

== ENCOUNTER 2019-04-10 08:10 | Inpatient (IN) ==
[2019-04-10] MEDS: MORPHINE 4 MG/1 ML VIAL IV PRN ×3 (13:13→20:36)
[2019-04-11] MEDS: LORazepam 2 MG/1 ML VIAL IV PRN ×2 (00:08→02:24)
[2019-04-11] MEDS: MORPHINE 4 MG/1 ML VIAL IV PRN (01:34)
[2019-04-11] MEDS ORDERED: MORPHINE 4 MG/1 ML VIAL IV PRN (02:17)
[2019-04-11 09:51] VITALS: BP 119/80
== END 2019-04-11 10:12 | disposition expired | DRG 374 ==
LOC: EDSTATUS 08:10 → N.4EOUT 08:10 → N.4E 08:10
PROVIDERS: ADMIT Internal Medicine; ATTEND Internal Medicine